=== PATIENT | female | born 1985 | race Caucasian/White ===

== ENCOUNTER 2018-12-21 21:02 | Emergency (ER) | payer SELFPAY ==
[2018-12-21] MEDS ORDERED: Bupivacaine 0.5% 10 ML VIAL ONE (21:15)
[2018-12-21] MEDS ORDERED: Acetaminophen/Codeine 30-300mg Tablet ONE (21:20)
[2018-12-21] MEDS ORDERED: AMOXicillin 250 MG CAP ONE (21:22)
== END 2018-12-21 21:25 | disposition home or self-care (01) ==
LOC: BURERS 21:02
DX: K04.7 Periapical abscess without sinus (principal)
CPT/HCPCS: 99282; J3490

== ENCOUNTER 2019-07-27 00:20 | Emergency (ER) | payer SELFPAY ==
[2019-07-27 00:45] LABS: Bilirubin Negative (Negative); Blood, Urine Trace (Negative); Clarity Cloudy (Clear); Glucose, Urine (Dipstick) Negative (Negative); Leukocyte Large (Negative); Nitrite Positive (Negative); Protein, Urine (Dipstick) Negative (Neg-Trace)
[2019-07-27 00:49] LABS: Pregnancy Test - Urine (BHCG) Negative (Negative); Pregu Control Background? CLEAR/WHITE (CLR/WHITE); Pregu Control Bar Appear? YES (CONTROL BAR); Specific Gravity 1.014 (1.002-1.036)
[2019-07-27] MEDS ORDERED: cefTRIAXone\\ROCEPHIN 1 GM VIAL ONE (00:51)
[2019-07-27] MEDS ORDERED: Sterile Water 10 ML ONE (00:52)
[2019-07-27 00:53] LABS: Bacteria/HPF 2+ HPF (None Seen); RBC/HPF 0-3 HPF (0-3); Transitional Epithelial 0-3 HPF (None Seen)
[2019-07-27] MEDS ORDERED: Ketorolac Tromethamine 60 MG/2 ML VIAL ONE (00:55)
== END 2019-07-27 01:03 | disposition home or self-care (01) ==
LOC: BURERS 00:20
DX: N12 Tubulo-interstitial nephritis, not specified as acute or chronic (principal)
CPT/HCPCS: 81003; 81015; 81025; 87077; 87086; 87186; 96372; 99283; J0696; J1885